=== PATIENT | female | born 1990 | race Hispanic/Latino ===

== ENCOUNTER 2019-10-26 16:45 | Emergency (ER) | payer SELFPAY ==
--- NOTE | ~2019-10-26 | XR_ITS ---
EXAMINATION: XR chest 1V portable 10/26/2019 18:58 INDICATION: Cough, shortness of breath and chest pressure PROCEDURE: AP portable chest COMPARISON: No prior studies for comparison. FINDINGS: The lungs are clear. The cardiomediastinal silhouette is within normal limits. There are no pleural effusions. There is no pneumothorax suspected. IMPRESSION: 1: NO ACUTE CARDIOPULMONARY DISEASE. Reviewed, dictated and finalized at location A.
[2019-10-26 16:58] VITALS: BP 139/87; PULSE 83; RESP 17; TEMP 36.8; O2SAT 100
--- NOTE | 2019-10-26 17:02 | ECG_ITS ---
Measurements Intervals [place] Rate: 79 P: 32 [place]: 164 QRS: 0 QRSD: 98 T: 9 QT: 357 QTc: 411 Interpretive Statements SINUS RHYTHM VOLTAGE CRITERIA FOR LVH MINIMAL Q WAVES- HIGH LATERAL LEADS BORDERLINE ECG Electronically Signed On 10-26-2019 18:19:45 CDT by Ryan Erickson D.O.
[2019-10-26 17:17] LABS: Basophils Percent Auto 0.4 % (0.2-1.2); Eosinophils Absolute Auto 0.1 K/mm3 (0-0.3); Eosinophils Percent Auto 0.8 % (0-4.4); Hematocrit 40.8 % (37.0-47.0); Hemoglobin 13.6 g/dL (12.0-15.0); Immature Granulocyte Absolute 0.02 K/mm3 (0.00-0.031); Immature Granulocyte Percent A 0.3 % (0-0.5); Lymphocytes Absolute Auto 2.48 K/mm3 (0.9-3.2); Lymphocytes Percent Auto 34.8 % (18.3-44.2); Mean Corpuscular HGB Conc 33.3 g/dl (32-36); Mean Corpuscular Hemoglobin 29.2 pg (26-34); Mean Corpuscular Volume 87.7 fl (80-100); Mean Platelet Volume 9.9 fl (7.4-10.4); Monocytes Absolute Auto 0.6 K/mm3 (0.1-0.6); Monocytes Percent Auto 7.9 % (2.6-8.5); Neutrophils Percent Auto 55.8 % (45.5-73.1); Platelet Count Result 282 k/mm3 (150-375); Red Blood Count 4.65 M/mm3 (4.2-5.4); Red Cell Distribution Width 13.1 % (11.5-14.5); White Blood Count 7.1 K/mm3 (4.5-10.0)
[2019-10-26 17:30] LABS: Blood Urea Nitrogen 9 mg/dL (7-17); Calcium 9.3 mg/dL (8.4-10.2); Carbon Dioxide 26 mmol/L (22-30); Chloride 105 mmol/L (98-107); Estimated CRCL calculation 122 ml/min; Estimated Glomerular Filt Rate > 60; Glucose 103 mg/dL (65-105); Potassium 3.9 mmol/L (3.4-5.0); Sodium 140 mmol/L (137-145)
[2019-10-26 19:28] VITALS: BP 128/82; PULSE 71; RESP 18; O2SAT 99
--- NOTE | 2019-10-26 19:33 | PC.NURSE ---
Pt only states pain in the back of her head rating it at a 8/10. She states the pain hurts worst when she sits up, lying back makes the pain better. aware.
[2019-10-26 19:38] VITALS: O2SAT 99
--- NOTE | 2019-10-26 19:43 | ECG_ITS ---
Measurements Intervals [place] Rate: 60 P: 24 [place]: 171 QRS: 1 QRSD: 97 T: 8 QT: 401 QTc: 403 Interpretive Statements SINUS RHYTHM VOLTAGE CRITERIA FOR LVH MINIMAL Q WAVES- HIGH LATERAL LEADS BORDERLINE T WAVE ABNORMALITY- INFERIOR LEADS BASELINE ARTIFACT- II, III BORDERLINE ECG Electronically Signed On 10-27-2019 7:20:53 CDT by Ryan Erickson D.O.
--- NOTE | 2019-10-26 19:46 | ED.SOB ---
HPI - SOB/Dyspnea General Chief Complaint: Shortness of Breath/Dyspnea Stated Complaint: covid testing Time Seen by Provider: 10/26/19 19:08 Source: RN notes reviewed History of Present Illness HPI Narrative: Patient presents emergency department from home for multiple complaints. Patient says she began feeling ill 4 days ago. She states that she has had a sore throat with pain in her right ear a intermittent posterior headache and shortness of breath and chest pain with ambulation that resolves with sitting. Patient states that she has had a mild nonproductive cough. She denies any fevers or chills abdominal pain nausea vomiting or any other symptoms. Patient states she gone to a clinic today and was referred to the emergency department for further evaluation as well as a COVID test. She states she took Tylenol this morning. Patient is currently stating that she has throat pain she denies any current chest pain or shortness of breath Related Data Allergies Allergy/AdvReac Type Severity Reaction Status Date / Time No Known Allergies Allergy Verified 10/26/19 17:01 Review of Systems Review of Systems: Narrative: Gen.: Denies fevers or chills Eyes: Denies eye pain or visual change ENT: Reports sore throat and ear pain Respiratory: reports shortness of breath and cough CV: Reports chest pain GI: Denies abdominal pain nausea, emesis or diarrhea Musculoskeletal: Denies back pain or muscle pain Neuro: Denies numbness, tingling, weakness or focal weakness Skin: Denies rash Except as documented, all other systems reviewed and negative PMFSH Past Medical History Medical History (Updated 10/26/19 @ 23:24 by Ebenezer Berg DO) Patient denies significant medical history Social History Social History (Updated 10/26/19 @ 19:48 by Ebenezer Berg DO) Smoking status: Never smoker Gender identity (if verbalized by the patient): Female Exam Narrative: Exam Narrative: APPEARANCE: No acute distress, nontoxic, resting in bed EYES: EOMI HEENT: Normocephalic, atraumatic, TMs clear bilaterally, bilateral turbinates boggy mild erythema nausea posterior pharynx RESPIRATORY: No respiratory distress Clear to auscultation bilaterally with no rhonchi wheezing or rales. CARDIOVASCULAR: Regular rate and rhythm without murmurs rubs or gallops. ABDOMINAL: Soft, nontender, nondistended, no rebound or guarding MUSCULOSKELETAl: Moves all extremities. No clubbing, cyanosis or edema. NEURO: Awake and alert. Following commands, speech normal, no focal deficits SKIN:: Warm, dry. No rashes lesions or abrasions PSYCHIATRIC: Normal affect/mood, Course Course Emergency Course: Patient states she is feeling better following medication. Discussed with patient, testing and results will come back tomorrow. Discussed need for self quarantine Discussed with patient results of workup and diagnosis. Discussed need for follow-up with primary care, proper use of medication, and reasons to return to the emergency department. Patient understands and agrees to current treatment plan Vital Signs Vital signs: Vital Signs Temperature 98.2 F 10/26/19 16:58 Pulse Rate 83 10/26/19 16:58 Respiratory Rate 17 10/26/19 16:58 Blood Pressure 139/87 10/26/19 16:58 Pulse Oximetry 100 10/26/19 16:58 Temperature 98.2 F 10/26/19 16:58 Pulse Rate 72 10/26/19 21:46 Respiratory Rate 18 10/26/19 19:28 Blood Pressure 138/93 H 10/26/19 21:46 Pulse Oximetry 100 10/26/19 21:46 MDM - SOB/Dyspnea MDM Narrative Medical decision making narrative: Patient's EKGs and labs are without significant high risk changes. Cardiac risk factors reviewed. Patient is felt likely low risk for ACS and reasonable for further risk stratification testing as an outpatient. Pain was not sudden or maximal in onset without tearing or ripping quality. No other signs of symptoms suggest aortic dissection. A low-risk Wells criteria is noted, PE is felt to be unlikely. N
[2019-10-26 20:14] LABS: Prothrombin Time 13.2 Seconds (11.1-14.7)
[2019-10-26 20:15] LABS: Partial Thromboplastin Time 29.3 SECONDS (22.3-36.8)
[2019-10-26 20:18] LABS: D Dimer 0.27 ug/mL (<0.48)
[2019-10-26] MEDS: KETOROLAC 30 MG/ML VIAL (*BKC) IV PUSH (20:30)
[2019-10-26] MEDS: SODIUM CHLORIDE 0.9% IV 1,000 ML 999 ML IV CONT (20:32)
[2019-10-26 20:39] LABS: Troponin I < 0.012 ng/mL (0.000-0.034)
[2019-10-26 21:46] VITALS: BP 138/93; PULSE 72; O2SAT 100
--- NOTE | 2019-10-26 21:54 | PC.NURSE ---
Blood Glucose was 78 at 21:54
[2019-10-26 21:56] LABS: Glucose Point of Care 78 (65-105)
[2019-10-26 23:12] LABS: Troponin I < 0.012 ng/mL (0.000-0.034)
[2019-10-27 01:43] VITALS: BP 138/93; PULSE 72; O2SAT 100
== END 2019-10-27 01:06 | disposition home or self-care (01) ==
PROVIDERS: Emergency Medicine; Emergency Provider Emergency Medicine
DX: J06.9 Acute upper respiratory infection, unspecified (principal); Z20.828 Contact with and (suspected) exposure to other viral communicable diseases; R94.31 Abnormal electrocardiogram [ECG] [EKG]
CPT/HCPCS: 36415; 71045; 80048; 82948; 84484; 85025; 85380; 85610; 85730; 87880; 93005; 96361; 96374; 99284; J1885; J7030

== ENCOUNTER → 2022-04-27 15:48 | Outpatient (CLI) | payer SELFPAY ==
--- NOTE | ~2022-04-27 | US_ITS ---
EXAMINATION: US OB /maternal detail DATE: 04/27/2022 16:34 INDICATION: Encounter for supervision of normal , unspecified. TECHNIQUE: Real-time ultrasound of the pelvis was performed. COMPARISON: None. FINDINGS: There is a single living fetus in variable presentation. The placenta is posterior, 8.1 cm from the cervix. The cervical length is 3.4 cm on transabdominal images, which is normal. heart rate is 144 beats per minute (bpm). The amniotic fluid volume is subjectively normal. The following biometric data were obtained: Biparietal diameter (BPD): 6.5 cm; head circumference (HC): 23.5 cm; abdominal circumference (AC): 22 .2 cm; femur length (FL): 4.8 cm. These measurements are concordant. Estimated weight is 918 g +/- 138 g, which correlates with the 71st percentile when 08/06/22 is used as estimated date of delivery. As single measurements, these parameters are each equal to the following estimated gestational ages: BPD: 26 weeks 2 days. HC: 25 weeks 4 days. AC: 26 weeks 5 days. FL: 26 weeks 0 days. estimated gestational age based solely on measurements from this exam is 26 weeks 1 days +/- 1 weeks 6 days. The cerebral ventricles, cerebellum, cisterna magna, nuchal fold, lip, and visualized portions of the spine are normal. The heart is normal. The diaphragm, stomach, kidneys, and bladder are normal. Ther e are two umbilical arteries to yield a 3-vessel cord. The cord insertion is normal. IMPRESSION: 1. Single living fetus in variable presentation. 2. Estimated weight is 918 g +/- 138 g, which correlates with the 71st percentile when 08/06/22 is used as estimated date of delivery. 3. Normal anatomic survey. Reviewed, dictated and finalized at location A. [facility] IMPRESSION: 1. Single living fetus in variable presentation. 2. Estimated weight is 918 g +/- 138 g, which correlates with the 71st p ercentile when 08/06/22 is used as estimated date of delivery. 3. Normal anatomic survey.
== END ==
PROVIDERS: PCP Obstetrics & Gynecology; Visit Provider Obstetrics & Gynecology
DX: Z34.92 Encounter for supervision of normal pregnancy, unspecified, second trimester (principal); Z3A.26 26 weeks gestation of pregnancy
CPT/HCPCS: 76805

== ENCOUNTER 2023-07-13 10:36 | Emergency (ER) | payer OTHER, SELFPAY ==
[2023-07-13 10:49] VITALS: BP 127/66; PULSE 71; RESP 16; TEMP 36.9; O2SAT 99
--- NOTE | 2023-07-13 11:30 | ECG_ITS ---
Measurements Intervals [place] Rate: 62 P: 35 SD: 168 QRS: 16 QRSD: 97 T: 20 QT: 408 QTc: 416 Interpretive Statements SINUS RHYTHM WITH SINUS ARRHYTHMIA MINIMAL Q WAVES- HIGH LATERAL LEADS BASELINE ARTIFACT- I, II, III, AVF, V5 BORDERLINE ECG COMPARED TO ECG 10/26/2019 22:03:03 SINUS ARRHYTHMIA NOW PRESENT Electronically Signed On 07-13-2023 12:57:33 CDT by Ryan Erickson D.O.
[2023-07-13 11:47] VITALS: BP 119/67; PULSE 61
[2023-07-13 11:48] VITALS: BP 121/73; PULSE 65
[2023-07-13 11:49] VITALS: BP 123/68; PULSE 70
--- NOTE | 2023-07-13 11:53 | ED.GENADULT ---
HPI - General Adult General Chief complaint: Headache Stated complaint: tingling hands/feet,dizziness,SOLER Source: patient Mode of arrival: ambulatory Limitations: no limitations History of Present Illness HPI narrative: Patient presents for evaluation of multiple concerns. Over the course of last month she has experienced paresthesias in her hands and feet. She gets dizziness when moving from sitting to standing position. She also hears a loud roaring noise in her ears when moving from sitting to standing position. She has a headache in the occipital region and into her neck that she describes as a throbbing sensation. She took some Tylenol for her symptoms. It provided her with mild relief in her symptoms. She reports palpitations that have increased in frequency, but she cannot provide me a date with which her symptoms started nor the frequency with which she is experiencing symptoms. She was experiencing urinary frequency, dysuria and incomplete emptying. Someone gave her some cranberry pills and Azo and those symptoms have improved as of yesterday. She denies any chest pain or shortness of breath. She reports high stress levels as result of caring for her children, work issues and a recent divorce that was finalized 2 weeks ago. She denies any alcohol or illicit drug use. She states she was told she had SLE over one year ago but did not receive treatment for it. She has never seen rheumatology. Related Data Allergies Allergy/AdvReac Type Severity Reaction Status Date / Time No Known Allergies Allergy Verified 10/26/19 17:01 Review of Systems Review of Systems: CONSTITUTIONAL: Denies fever, chills, or sweats. EYES: Denies visual changes, redness, or discharge. ENT: Reports a load roaring noise in her ears when moving from sitting to standing position CARDIOVASCULAR: Reports palpitations. Denies chest pain or edema. RESPIRATORY: Denies cough or dyspnea. GASTROINTESTINAL: Denies abdominal pain, nausea, vomiting, or diarrhea. GENITOURINARY: Reports recent urinary symptoms, now resolved SKIN: Denies rash or itching. MUSCULOSKELETAL: Reports neck pain. Denies back pain, joint pain, or myalgia. NEUROLOGIC: Reports headache. Reports numbness and tingling in bilateral hands and feet Reports dizziness with positional changes PSYCHIATRIC: Denies anxiety or depression. [facility] Past Medical History Medical History Lupus induced hypertension Surgical History Surgical History History of Family History Family History Mother Family history non-contributory Social History Social History Smoking status: Never smoker Substance use: never Living arrangements: with family Gender identity (if verbalized by the patient): Female Sexual Orientation (if Verbalized by the Patient): Straight or Heterosexual Spiritual care concerns: No Exam Narrative: GENERAL: Well-appearing, well-nourished, and in no acute distress. HEAD: Normocephalic, atraumatic. EYES: PERRLA and EOMI. ENT: Nares clear, no rhinorrhea or epistaxis. Mucous membranes moist. Oropharynx without tonsillar hypertrophy exudate or other lesions. Bilateral TMs pearly henderson nonbulging NECK: Supple. No adenopathy or masses. No carotid bruits or JVD CHEST: Clear to auscultation. No respiratory distress. No wheezes rales or rhonchi HEART: Regular rate and rhythm. No murmur heard. Normal peripheral pulses. ABDOMEN: Soft, nontender, nondistended, normal active bowel sounds. EXTREMITIES: Normal range of motion. No edema. SKIN: Warm, dry, no rash. NEURO: No focal deficits. Alert and oriented x3. negative Girard-Hallpike maneuver however moving from supine to sitting position induces dizziness. PSYCH:
[2023-07-13 11:57] LABS: Glucose Point of Care 71 mg/dl (65-105)
== END 2023-07-13 12:30 | disposition short-term general hospital (02) ==
PROVIDERS: Emergency Provider Nurse Practitioner
DX: N39.0 Urinary tract infection, site not specified (principal); B96.20 Unspecified Escherichia coli [E. coli] as the cause of diseases classified elsewhere; R42 Dizziness and giddiness; R20.2 Paresthesia of skin; M32.9 Systemic lupus erythematosus, unspecified
CPT/HCPCS: 81003; 81025; 82948; 87077; 87086; 87088; 87186; 93005; 99213; G0463